=== PATIENT | male | born 1995 | race Caucasian/White ===

== ENCOUNTER 2025-09-25 13:25 | Emergency (ER) | payer SELFPAY ==
[2025-09-25] VITALS (8 sets, daily range): BP systolic 95–182; BP diastolic 57–138; PULSE 99–117; RESP 15–24; TEMP 36.9; O2SAT 96–98
--- NOTE | 2025-09-25 13:46 | CTR_ITS ---
PROCEDURE INFORMATION: Exam: CT Head Without Contrast Exam date and time: 09/25/2025 2:52 PM Age: 30 years old Clinical indication: Pain; Headache; Additional info: ANTONIO TECHNIQUE: Imaging protocol: Computed tomography of the head without contrast. Radiation optimization: All CT scans at this facility use at least one of these dose optimization techniques: automated exposure control; mA and/or kV adjustment per patient size (includes targeted exams where dose is matched to clinical indication); or iterative reconstruction. COMPARISON: No relevant prior studies available. RADIATION DOSE METRICS: Total DLP (mGy-cm): 1162.1 FINDINGS: Brain: Multiple lobar hemorrhages in the right frontoparietal and temporal lobes. The largest hematoma in the perirolandic region measures approximately 4.2 x 2.9 x 2.1 cm. Right temporal lobe hematoma measures 1.9 x 1.7 x 2.6 cm. Smaller hemorrhages including a more hypodense hemorrhage in the right frontal lobe (series 7, image 37) and hematoma in the right occipital lobe (series 7, image 22). There is extensive vasogenic edema and proximally 1.4 cm of leftward midline shift with subfalcine herniation. Cerebral ventricles: The left lateral ventricle appears slightly enlarged, possibly reflecting obstructive hydrocephalus. Paranasal sinuses: Moderate left maxillary sinus mucosal thickening. Mastoid air cells: Visualized mastoid air cells are well aerated. Bones: Unremarkable. No acute fracture. Soft tissues: Unremarkable. CT/CT head wo con* [id number] IMPRESSION: 1. Multiple right-sided lobar hemorrhages with extensive vasogenic edema and 1.4 cm of leftward midline shift and subfalcine herniation. 2. Asymmetric enlargement of the left lateral ventricle, possibly trapped ventricle and obstructive hydrocephalus. 3. Recommend emergent neurosurgical consult. 4. Possible etiologies for multiple parenchymal hematomas include extreme hypertension, possibly substance induced in a patient of this age. Given proximity to lazo-white junction, can not exclude hemorrhagic metastases. Recommend MRI with contrast when patient is clinically stable, if no contraindication. COMMENTS: THIS REPORT CONTAINS FINDINGS THAT MAY BE CRITICAL TO PATIENT CARE. The exam findings were verbally communicated by me to SRINI BEAVERS via telephone conference at 3:09 PM SUPPLIER ENGINEER on 09/25/2025. The findings were acknowledged and understood.
--- NOTE | 2025-09-25 13:46 | ECG_ITS ---
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 Measurements Intervals [place] Rate: 110 P: 52 FL: 151 QRS: 35 QRSD: 101 T: -16 QT: 378 QTc: 513 Interpretive Statements SINUS TACHYCARDIA POSSIBLE LEFT ATRIAL ENLARGEMENT [-0.1mV P-WAVE IN V1/V2] SEPTAL MYOCARDIAL INFARCTION , PROBABLY OLD [40+ ms Q WAVE IN V1/V2] No previous ECG available for comparison Electronically Signed On 09-27-2025 17:50:19 PSYCHIATRIST by Reagan Pollard M.D. [email or web address]
--- NOTE | 2025-09-25 13:48 | ED_ITS ---
HPI - Headache 2 General: Chief Complaint: Headache Stated Complaint: stroke like symptoms Time Seen by Provider: 09/25/25 13:37 Source: patient Mode of arrival: ambulatory Limitations: no limitations History of Present Illness: 30-year-old male has a history of hypert ension along with alcohol abuse states he has had a headache over the last 2 days. 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 States he has family history of migraines. States he had some blurred vision originally but that has improved he states he had some left arm weakness over the last 2 days as well. Since mild dizziness he had vomiting he denies any fevers. Related Data Previous Rx's ?Medication ?Instructions ?Recorded clonidine HCl 0.1 mg tablet 0.1 mg PO TID PRN hyperten sive 03/23/25 emergency #90 tabs Allergies Allergy/AdvReac Type Severity Reaction Status Date / Time No Known Allergies Allergy Verified 09/25/25 13:35 Review of Systems 2 Neuro: Reports: headache(s) PFS ED 2 PFSH: Medical History (Updated 09/25/25 @ 15:18 by Srini Beavers MD) Depression Hypertension Social History Smoking and tobacco/nicotine status: never used tobacco/nicotine Physical Exam 2 Const: COMMON NORMALS: no acute distress, patient oriented x3 and healthy appearing HENMT: COMMON NORMALS: normocephalic and atraumatic HEAD & SCALP: n ormocephalic and atraumatic Eye: COMMON NORMALS: Equal, round and reactive pupils present and EOMs intact bilaterally PUPIL: Yes Equal, round and reactive pupils present Neck/C-Spine: COMMON NORMALS: full ROM and supple Chest: COMMONS NORMALS: normal inspection of the chest Resp: COMMON NORMALS: normal respiratory effort, No retractions, No use of accessory muscles and clear to auscultation bilaterally AUSCULTATION: clear to auscultation bilaterally Cardio: COMMON NORMALS: regular rate, regular rhythm and No murmurs present (Cardio) RATE: regular rate RHYTHM: regular rhythm GI: COMMON NORMALS: Normal to inspection, nondistended, normoactive bowel sounds present, Soft to palpation, non-tender and no masses PALPATION: Yes Soft to palpation Extremity: COMMON NORMALS: normal to inspection and full ROM Neuro: COMMON NORMALS: patient oriented x3 and moves all extremities Psych: COMMON NORMALS: mental status grossly normal, Normal thought process present and cooperative THOUGHT PROCESS: Normal thought process present Skin: COMMON NORMALS: no rashes or lesions noted and no wounds GENERAL SKIN EXAM: no rashes or lesions noted Procedures Intubation Time out performed: Yes sedative: Etomidate Mg Given: 20 paralytic: Succinylcholine Mg Given: 150 Laryngoscope: Aric ET Tube Size: 8 ET Tube Uncuffed: No Tube Secured Depth (cm): 25 Tube Secured Location: teeth Tube Placement Confirmation: visualized tube passing through cords, equal breath sounds bilaterally, no breath sounds over epigastrium and confirmation by capnometry Patient Tolerated Procedure: well Intubation Complications: none Course 2 Vital Signs: Vital signs: Vital Signs Temperature 98.4 F 09/25/25 13:28 Pulse Rate 113 H 09/25/25 13:28 Respiratory Rate 16 09/25/25 13:28 Blood Pressure 182/138 09/25/25 13:28 Pulse Oximetry 96 09/25/25 13:28 Oxygen Delivery Me thod Room Air 09/25/25 13:28 MDM - Headache Medical Decision Making Patient presents with headaches been going on for 2 days along with some mild left-sided weakness. Differential includes tension headache, migraine, subarachnoid hemorrhage, intracerebral hemorrhage. Did perform a head CT that does show multiple and cerebral hemorrhages with a midline shift. Patient has became more altered here and did have to intubate him. Likely from hypertension did give patient hydralazine along with multiple dose of labetalol have him on a Cardene drip along with propofol drip. I did speak to [facility] and they excepted to the ER for high-level care of neurosurgery. critical care time 40 minutes The high probability of a clinically significant, sudden or life threatening deterioration of the patient's neuro system(s) required my full and direct attention, intervention and personal management. The critical care time is as shown. This time is in addition to time spent performing any reported procedures but includes the following: [x] Data and vital sign review and interpretation [x] Patient assessment, examination and intervention [x] Documentation [x] Medication orders and management Medical Records I reviewed the patient's medical records. Lab Data I reviewed the patient's lab results. 09/25/25 13:55 09/25/25 13:[address] 09/25/25 13:46 IMPRESSION: 1. Multiple right-sided lobar hemorrhages with extensive vasogenic edema and 1.4 cm of leftward midline shift and subfalcine herniation. 2. Asymmetric enlargement of the left lateral ventricle, possibly trapped ventricle and obstructive hydrocephalus. 3. Recommend emergent neurosurgical consult. 4. Possible etiologies for multiple parenchymal hematomas include extreme hypertension, possibly substance induced in a patient of this age. Given proximity to lazo-white junction, can not exclude hemorrhagic metastases. Recommend MRI with contrast when patient is clinically stable, if no contraindication. COMMENTS: THIS REPORT CONTAINS FINDINGS THAT MAY BE CRITICAL TO PATIENT CARE. The exam findings were verbally communicated by me to SRINI BEAVERS via telephone conference at 3:09 PM COPPER ROLLER HANDLER PRINTING on 09/25/2025. The findings were acknowledged and understood. Laboratory Results WBC 12.35 10^3/uL (3.29-11.43) H 09/25/25 13:55 RBC 5.31 10^6/uL (3.85-5.65) 09/25/25 13:55 Hgb 18.20 g/dL (11.27-16.99) H 09/25/25 13:55 Hct 50.0 % (37-53) 09/25/25 13:55 MCV 94.2 fl (82-101) 09/25/25 13:55 MCH 34.3 pg (27-33) H 09/25/25 13:55 MCHC 36.4 g/dL (30-55) 09/25/25 13:55 RDW 16.4 % (12.1-15.1) H 09/25/25 13:55 Plt Count 264 10^3/cmm (157-399) 09/25/25 13:55 MPV 9.8 fL (7.4-10.4) 09/25/25 13:55 Neut % (Auto) 78.2 % 09/25/25 13:55 Lymph % (Auto) 9.6 % 09/25/25 13:55 [place] % (Auto) 11.2 % 09/25/25 13:55 Eos % (Auto) 0.0 % 09/25/25 13:55 Baso % (Auto) 0.2 % 09/25/25 13:55 Neut # (Auto) 9.67 10^3/uL (1.8-7.7) H 09/25/25 13:55 Lymph # (Auto) 1.2 10^3/uL (0.8-4.8) 09/25/25 13:55 [place] # (Auto) 1.4 10^3/uL (0.2-0.9) H 09/25/25 13:55 Eos # (Auto) 0.0 10^3/uL (0.0-0.8) 09/25/25 13:55 Baso # (Auto) 0.0 10^3/uL (0.0-0.1) 09/25/25 13:55 Nucleated RBC % (auto) 0 % 09/25/25 13:55 Nucleated RBCs # 0.0 /100WBC 09/25/25 13:55 PT 14.80 SECONDS (12.1-14.9) 09/25/25 13:55 INR 1.08 (0.8-1.2) 09/25/25 13:55 Sodium 132 mmol/L (136-145) L 09/25/25 13:55 Potassium 2.8 mmol/L (3.5-5.1) L* 09/25/25 13:55 Chloride 89 mmol/L (98-107) L 09/25/25 13:55 Carbon Dioxide 27 mmol/L (22-29) 09/25/25 13:55 Anion Gap 18.8 (5-19) 09/25/25 13:55 BUN 13 mg/dL (6-20) 09/25/25 13:55 Creatinine 0.9 mg/dL (0.7-1.2) 09/25/25 13:55 GFR Calculation 98.4 mL/min (90-130) 09/25/25 13:55 Glucose 155 mg/dL (65-115) H 09/25/25 13:55 Calculated Osmolality 277 mOsm/kg (285-295) L 09/25/25 13:55 Calcium 8.7 mg/dL (8.5-10.5) 09/25/25 13:55 Magnesium 2.1 mg/dL (1.7-2.3) 09/25/25 13:55 Total Bilirubin 1.6 mg/dL (0.15-1.2) H 09/25/25 13:55 AST 32 U/L (0-40) 09/25/25 13:55 ALT 28 U/L (0-41) 09/25/25 13:55 Alkaline Phosphatase 52 U/L (40-130) 09/25/25 13:55 Total Protein 7.3 g/dL (6.6-8.7) 09/25/25 13:55 Albumin 3.7 g/dL (3.5-5.2) 09/25/25 13:55 Globulin 3.6 g/dL (1.3-4.6) 09/25/25 13:55 Ethyl Alcohol < 10 mg/dL (0-10) 09/25/25 13:55 All radiology interpretation(s) finalized by discharge EKG Data EKG 1: I personally reviewed and interpreted this EKG as follows: EKG interpretation date: 09/25/25 EKG interpretation time: 13:58 Interpretation: sinus tach hr [address] elevation qrs 101 qtc 443 Critical Care Time 2 Critical Care Time: Critical Care Time: Yes Total Critical Care Time: 40 Attestation: The high probability of a clinically significant, sudden or life threatening deterioration of the patient's neuro system(s) required my full and direct attention, intervention and personal management. The critical care time is as shown. This time is in addition to time spent performing any reported procedures but includes the following: [x] Data and vital sign review and interpretation [x] Patient assessment, examination and intervention [x] Documentation [x] Medication orders and management Discharge Plan Discharge Patient Disposition: Xfer Short-Term Hosp Clinical Impression: Intracranial hemorrhage Condition: Stable Referrals: Vasyl Rich MD [Primary Care Provider, [facility]] Print Language: Tamazight Coding Level of Care Code ED Icd 9 Coder for Chg Fwd NIH stroke score NIHSS Level Of Consciousness - 1a: 0 Level Of Consciousness Questions - 1b: Both Correct Level Of Consciousness Commands - 1c: Both Correct Best Gaze - 2: Normal Visual Hoffmann - 3: No Visual Loss Facial Palsy - 4: Normal Motor Arm Right - 5: No Drift Motor Arm Left - 5: Drift Motor Leg Right - 6: No Drift Motor Leg Left - 6: No Drift Limb Ataxia - 7: Absent Sensory - 8: Normal Best Language - 9: No Aphasia Dysarthia - 10: Normal Extinction And Inattention - 11: 0 Score Total Score: 1
[2025-09-25 14:02] LABS: Hematocrit 50.0 % (37-53); Hemoglobin 18.20 g/dL (11.27-16.99); Mean Corpuscular HGB Conc 36.4 g/dL (30-55); Mean Corpuscular Hemoglobin 34.3 pg (27-33); Mean Corpuscular Volume 94.2 fl (82-101); Nucleated Red Blood Cells % 0 %; Platelet Count 264 10^3/cmm (157-399); Red Blood Count 5.31 10^6/uL (3.85-5.65); White Blood Count 12.35 10^3/uL (3.29-11.43)
[2025-09-25] MEDS: metoclopramide 5 mg/mL SDV 2 mL 10 MG IVP (14:03)
[2025-09-25] MEDS: diphenhydrAMINE 50 mg/mL SDV 1mL IVP (14:04)
[2025-09-25] MEDS: hyDRALAzine 20 mg/mL INJ 1 mL 10 MG IVP (14:04)
--- OUTSIDE RECORDS SUMMARY | 2025-09-25 14:11 | XMS_ITS | Encounter Summary ---
Author Organization [employer] [facility] Address [address] [place] [address] Care Team Providers Care Map Colorer Name Role Phone Unavailable Primary Care Provider Unavailabl e Encounter Details Date Type Department Care Team (Late st Contact Info) Description 02/01/2018 Lab Requisition [facility] General Laboratory Services [address] [place] [address] 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 Gender Identity Not on file Sexual Orientation Not on file documented as of this encounter Plan of Treatment Not on file documented as of this encounter Procedures Procedure Name Priority Date/Time Associated Diagnosis Comments HEMOGLOBIN A1C Routine 02/01/2018 6:17 AM CDT LIPID PANEL Routine 02/01/2018 6:17 AM CDT COMPREHENSIVE METABOLIC PANEL Routine 02/01/2018 6:17 AM CDT documented in this encounter Results * HEMOGLOBIN A1C (02/01/2018 6:17 AM CDT) HEMOGLOBIN A1C 4.9 4.0 - 6.0 % 02/02/2018 10:46 AM CDT [facility] [employer] [facility] EST. AVG GLUCOSE, A1C 94 mg/dL 02/02/2018 10:46 AM CDT [facility] Blood Collection / Unknown 02/01/2018 6:17 AM CDT 02/01/2018 2:12 PM CDT Narrative [facility] - 02/02/2018 10:46 AM CDT Test performed on [employer] instrumentation using HPLC methodology Greg Baldwin DO CHEMISTRY ORDERABLES Final R esult [facility] CLIA# [id number] [address] [place] [address] * (ABNORMAL) LIPID PANEL (02/01/2018 6:17 AM CDT) CHOLESTEROL 180 <200 mg/dL 02/01/2018 6:36 PM CDT [facility] TRIGLYCERIDE 63 <150 mg/dL 02/01/2018 6:36 PM CDT [facility] HDL 55 40 - 59 mg/dL 02/01/2018 6:36 PM CDT [facility] LDL CALCULATED 112(H) <100 mg/dL 02/01/2018 6:36 PM CDT [facility] NON-HDL CHOLESTEROL 125 <130 mg/dL 02/01/2018 6:36 PM T [facility] Blood Collection / Unknown 02/01/2018 6:17 AM CDT 02/01/2018 2:12 PM CDT Narrative [facility] - 02/01/2018 6:36 PM CDT TOTAL CHOLESTEROL mg/dL Desirable <200 Borderline high 200-239 High >=240 TRIGLYCERIDES mg/dL Normal <150 Borderline high 150-199 High 200-499 Very high >=500 HDL CHOLESTEROL mg/dL Low <40 Normal 40-59 Desirable >=60 NON HDL CHOLESTEROL mg/dL Optimal <130 Near Optimal 130-159 Borderline High 160-189 Very High >=190 Calculated LDL mg/dL Optimal <100 Near Optimal 100-129 Borderline High 130-159 High 160-189 Very High >=190 ATPIII Guidelines Reference Ranges for Lipid Panels (NCEP/AMA) us Greg Baldwin DO CHEMISTRY ORDERABLES Final R esult [facility] CLIA# [id number] [address] [place] [address] * COMPREHENSIVE METABOLIC PANEL (02/01/2018 6:17 AM CDT) SODIUM 141 136 - 145 mmol/L 02/01/2018 6:36 PM T [facility] POTASSIUM 4.4 3.5 - 5.1 mmol/L 02/01/2018 6:36 PM [facility] CHLORIDE 100 98 - 107 mmol/L 02/01/2018 6:36 PM [facility] CO2 27 22 - 29 mmol/L 02/01/2018 6:36 PM [facility] CALCIUM 9.7 8.6 - 10.0 mg/dL 02/01/2018 6:36 PM [facility] BUN 12 6 - 20 mg/dL 02/01/2018 6:36 PM [facility] CREATININE 1.11 0.67 - 1.17 mg/dL 02/01/2018 6:36 PM [facility] GLUCOSE 102 74 - 106 mg/dL 02/01/2018 6:36 PM [facility] TOTAL PROTEIN 7.8 6.4 - 8.3 g/dL 02/01/2018 6:36 PM [facility] ALBUMIN 4.7 3.5 - 5.2 g/dL 02/01/2018 6:36 PM [facility] BILIRUBIN TOTAL 0.6 0.2 - 1.0 mg/dL 02/01/2018 6:36 PM [facility] ALKALINE PHOSPHATASE 53 40 - 129 U/L 02/01/2018 6:36 PM T [facility] AST 43 10 - 50 U/L 02/01/2018 6:36 PM [facility] ALT 46 <=50 U/L 02/01/2018 6:36 PM [facility] GFR >60 >=60 mL/min/1.7 3 sq meter 02/01/2018 6:36 PM CDT [facility] Comment: eGFR has not been validated for use in the elderly (> 70 years of age), women, patients with serious co-morbid conditions, or persons with extremes of body size or muscle mass and should also be interpreted with caution in patients with acute kidney failure, dialysis dependent patients, patients reporting exceptional dietary intake (e.g. vegetarian diet, high protein diets, creatine supplementation), and patients with severe liver disease. Based on National Kidney Disease Education Program If patient is , please refer to the GFR result. GFR, >60 >=60 mL/min/1.7 3 sq meter 02/01/2018 6:36 PM CDT [facility] ANION GAP 14 4 - 30 mmol/L 02/01/2018 6:36 PM CDT [facility] Blood Collection / Unknown 02/01/2018 6:17 AM CDT 02/01/2018 2:12 PM CDT us Greg Baldwin DO CHEMISTRY ORDERABLES Final R esult [facility] CLIA# [id number] [address] [place] [address] documented in this encounter Visit Diagnoses Not on filedocumented in this encounter
--- OUTSIDE RECORDS SUMMARY | 2025-09-25 14:11 | XMS_ITS | Encounter Summary ---
Author Organization [employer] [facility] Address [address] [place] [address] Care Team Providers Care Cream Tester Name Role Phone Unavailable Primary Care Provider Unavailabl e Encounter Details Date Type Department Care Team (Late st Contact Info) Description 02/07/2019 Lab Requisition [facility] General Laboratory Services [address] [place] [address] 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 [employer] [facility] EST. AVG GLUCOSE, A1C 103 mg/dL 02/08/2019 6:07 AM CDT [facility] Blood Collection / Unknown 02/07/2019 6:06 AM CDT 02/07/2019 12:08 PM CDT Jonathan [facility] - 02/08/2019 6:07 AM CDT HGB A1C INTERPRETATION NORMAL: <5.7% PRE-DIABETES: 5.7 - 6.4% DIABETES: 6.5% OR GREATER Greg Baldwin DO CHEMISTRY ORDERABLES Final R esult [facility] CLIA# [id number] [address] [place] [address] * (ABNORMAL) LIPID PANEL (02/07/2019 6:06 AM CDT) CHOLESTEROL 209(H) <200 mg/dL 02/07/2019 2:49 PM CDT [facility] TRIGLYCERIDE 78 <150 mg/dL 02/07/2019 2:49 PM CDT [facility] HDL 37(L) 40 - 59 mg/dL 02/07/2019 2:49 PM CDT [facility] LDL CALCULATED 156(H) <100 mg/dL 02/07/2019 2:49 PM CDT [facility] NON-HDL CHOLESTEROL 172(H) <130 mg/dL 02/07/2019 2:49 PM CDT [facility] Blood Collection / Unknown 02/07/2019 6:06 AM CDT 02/07/2019 12:08 PM CDT Jonathan [facility] - 02/07/2019 2:49 PM CDT TOTAL CHOLESTEROL mg/dL Desirable <200 [...] DO CHEMISTRY ORDERABLES Final R esult [facility] CLIA# [id number] [facility] [place] [address] * (ABNORMAL) COMPREHENSIVE METABOLIC PANEL (02/07/2019 6:06 AM CDT) SODIUM 140 136 - 145 mmol/L 02/07/2019 2:49 PM CDT [facility] POTASSIUM 3.8 3.5 - 5.1 mmol/L 02/07/2019 2:49 PM CDT [facility] CHLORIDE 101 98 - 107 mmol/L 02/07/2019 2:49 PM CDT [facility] CO2 26 22 - 29 mmol/L 02/07/2019 2:49 PM CDT [facility] CALCIUM 9.5 8.6 - 10.0 mg/dL 02/07/2019 2:49 PM CDT [facility] BUN 6 6 - 20 mg/dL 02/07/2019 2:49 PM CDT [facility] CREATININE 1.21(H) 0.67 - 1.17 mg/dL 02/07/2019 2:49 PM T [facility] GLUCOSE 84 74 - 99 mg/dL 02/07/2019 2:49 PM CDT [facility] TOTAL PROTEIN 7.9 6.4 - 8.3 g/dL 02/07/2019 2:49 PM T [facility] ALBUMIN 4.6 3.5 - 5.2 g/dL 02/07/2019 2:49 PM CDT [facility] BILIRUBIN TOTAL 0.6 0.2 - 1.0 mg/dL 02/07/2019 2:49 PM CDT [facility] ALKALINE PHOSPHATASE 43 40 - 129 U/L 02/07/2019 2:49 PM T [facility] AST 63(H) 10 - 50 U/L 02/07/2019 2:49 PM CDT [facility] ALT 50 <=50 U/L 02/07/2019 2:49 PM T [facility] GFR >60 >=60 mL/min/1. 73 sq meter 02/07/2019 2:49 PM T [facility] Comment: eGFR has not been validated for [...] to the GFR result. GFR, >60 >=60 mL/min/1. 73 sq meter 02/07/2019 2:49 PM CDT [facility] ANION GAP 13 9 - 20 mmol/L 02/07/2019 2:49 PM T [facility] Blood Collection / Unknown 02/07/2019 6:06 AM CDT 02/07/2019 12:08 PM CDT us Greg Baldwin DO CHEMISTRY ORDERABLES Final R esult [facility] CLIA# [id number] [address] [place] [address] documented in this encounter Visit Diagnoses Not on filedocumented in this encounter
--- OUTSIDE RECORDS SUMMARY | 2025-09-25 14:11 | XMS_ITS | Clinical Summary ---
Author Organization [facility] Address [address] [place] [address] Care Team Providers Care Log Haul Operator Name Role Phone Unavailable Primary Care Provider Unavailabl e Social History Tobacco Use Types Packs/Day Years Used Date Smoking Tobacco: Never Assessed Sex and Gender Information Value Date Recorded Sex Assigned at Not on file Legal Sex Male 7:21 AM CDT Gender Identity Not on file Sexual Orientation Not on file Plan of Treatment Health Maintenance Due Date Last Done Comments HIV Screening 1994 Hepatitis C Screening ages 1 8 to 79 once 1994 MMR VACCINES (1 of 1 - Stand sonia series) 1995 YEARLY WELLNESS EXAM 1997 Varicella Vaccine (2 of 2 - 2-dose childhood series) 1998 05/08/1996 DEPRESSION SCREENING 2006 HPV VACCINES (1 - Male 3-dos e series) 2009 ADULT TETANUS 2013 HEPATITIS B VACCINES (1 of 3 - 19+ 3-dose series) 2013 Influenza Vaccine 06/01/2025 COVID-19 Immunization (1 - 2 024-25 season) 2025 Zoster Vaccine (Recombinant Vaccine) (1 of 2) 2044 HEPATITIS A VACCINES Aged Out No long er eligible based on patient's age to complete this topic HIB VACCINES Aged Out No longer eligi ble based on patient's age to complete this topic IPV VACCINES Aged Out No longer eligi ble based on patient's age to complete this topic MENINGOCOCCAL VACCINE Aged Out No samantha lincoln eligible based on patient's age to complete this topic Meningococcal B Vaccine Aged Out No l onger eligible based on patient's age to complete this topic Pneumococcal Vaccine: Peds t o 50 & At-Risk Patients Aged Out No longer eligible b ased on patient's age to complete this topic ROTAVIRUS VACCINES Aged Out No longer eligible based on patient's age to complete this topic
--- OUTSIDE RECORDS SUMMARY | 2025-09-25 14:11 | XMS_ITS | Clinical Summary ---
Author Organization [facility] Address [address] [facility] Attn: [place] [address] Care Team Providers Care Agriculture Intern Name Role Phone Unavailable Primary Care Provider Unavailabl e Immunizations Immunization Administration Dates Next Due (M-M-R II/PRIORIX)(12 MO UP) MEASLES, MUMPS AND RUBELLA VIRUS VACCINE, 0.5 ML IM/SUBCUT 05/22/1998,07/22/1995 (VARIVAX)(12 MOS UP)VARICELL A VIRUS VACCINE (PF) 0.5 ML, SUB CUT 05/08/1996 Dt Dtp Dtap Vaccine 05/22/1998, 5,1994,1993,1994 HIB, Unspecified Formulation 07/22/1995, 1994,1994,1993 Hepatitis B Vaccine 1994,1994,1993 IPV/OPV 05/22/1998, 5,1994,1993 Social History Tobacco Use Types Packs/Day Years Used Date Smoking Tobacco: Never Assessed Sex and Gender Information Value Date Recorded Sex Assigned at Not on file 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
--- OUTSIDE RECORDS SUMMARY | 2025-09-25 14:11 | XMS_ITS | Encounter Summary ---
Author Organization [facility] Address [address] [place] [address] Care Team Providers Care Jig Maker Name Role Phone Unavailable Primary Care Provider Unavailabl e Encounter Details Date Type Department Care Team (Late st Contact Info) Description 02/06/2016 Lab Requisition [facility] General Laboratory Services [address] 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 Gender Identity Not on file Sexual Orientation Not on file documented as of this encounter Plan of Treatment Not on file documented as of this encounter Procedures Procedure Name Priority Date/Time Associated Diagnosis Comments GLUCOSE FASTING Routine 02/06/2016 9:56 AM CDT LIPID PANEL Routine 02/06/2016 9:56 AM CDT documented in this encounter Results * GLUCOSE FASTING (02/06/2016 9:56 AM CDT) GLUCOSE-FASTIN G 92 70 - 99 mg/dL 02/06/2016 3:02 PM CDT [facility] [employer] [facility] Blood Collection / Unknown 02/06/2016 9:56 AM CDT 02/06/2016 1:27 PM CDT Narrative [facility] [employer] [facility] - 02/06/2016 3:02 PM CDT <100 mg/dl: Normal Fasting Glucose 100-125 mg/dl: Impaired Fasting Glucose >/=126 mg/dl: Provisional diagnosis of Diabetes The diagnosis must be confirmed. Bud Phillips MD CHEMISTRY ORDERABLES Final Res ult Performing Organization Address City/[facility]/ZIP Co de Phone Number [facility] CLIA# [id number] [address] [place] [address] * (ABNORMAL) LIPID PANEL (02/06/2016 9:56 AM CDT) [facility] CHOLESTEROL 171 <200 mg/dL 02/06/2016 3:02 PM CDT [facility] TRIGLYCERIDE 51 <150 mg/dL 02/06/2016 3:02 PM CDT [facility] HDL 81(H) 40 - 59 mg/dL 02/06/2016 3:02 PM CDT [facility] LDL CALCULATED 80 <100 mg/dL 02/06/2016 3:02 PM CDT [facility] NON-HDL CHOLESTEROL 90 <130 mg/dL 02/06/2016 3:02 PM T [facility] Blood Collection / Unknown 02/06/2016 9:56 AM CDT 02/06/2016 1:27 PM CDT Narrative [facility] - 02/06/2016 3:02 PM CDT TOTAL CHOLESTEROL mg/dL Desirable <200 Borderline high 200-239 High >=240 TRIGLYCERIDES mg/dL Normal <150 Borderline high 150-199 High 200-499 Very high >=500 HDL CHOLESTEROL mg/dL Low <40 Normal 40-59 Desirable >=60 LDL CHOLESTEROL mg/dL Optimal <100 Low risk 100-129 Borderline high 130-159 High 160-189 Very high >=190 NON HDL CHOLESTEROL mg/dL Optimal <130 Near Optimal 130-159 Borderline High 160-189 High 190-219 Very high >=220 Based on AHA/NCEP Guidelines Bud Phillips MD CHEMISTRY ORDERABLES Final Res ult Performing Organization Address City/[facility]/ZIP Co de Phone Number [facility] CLIA# [id number] [address] [place] [address] documented in this encounter Visit Diagnoses Not on filedocumented in this encounter
--- OUTSIDE RECORDS SUMMARY | 2025-09-25 14:11 | XMS_ITS | Encounter Summary ---
Author Organization [employer] [facility] Address [address] [place] [address] Care Team Providers Care Script Girl Name Role Phone Unavailable Primary Care Provider Unavailabl e Encounter Details Date Type Department Care Team (Latest Contact Info) Description 10/14/1999 Outpatient Historical [facility] Ruiz Luz MD [address] [place] [address] Chronic rhinitis (Primary Dx) Social History Tobacco Use Types Packs/Day Years Used Date Smoking Tobacco: Never Assessed Sex and Gender Information Value Date Recorded Sex Assigned at Not on file 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
--- OUTSIDE RECORDS SUMMARY | 2025-09-25 14:11 | XMS_ITS | Clinical Summary ---
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
[2025-09-25 14:20] LABS: Alanine Aminotransferase 28 U/L (0-41); Albumin Level 3.7 g/dL (3.5-5.2); Alkaline Phosphatase 52 U/L (40-130); Anion Gap 18.8 (5-19); Aspartate Amino Transferase 32 U/L (0-40); Blood Urea Nitrogen 13 mg/dL (6-20); Calcium 8.7 mg/dL (8.5-10.5); Carbon Dioxide 27 mmol/L (22-29); Chloride 89 mmol/L (98-107); Globulin 3.6 g/dL (1.3-4.6); Glucose 155 mg/dL (65-115); INR 1.08 (0.8-1.2); Osmolality Calculated 277 mOsm/kg (285-295); Prothrombin Time 14.80 SECONDS (12.1-14.9); Sodium 132 mmol/L (136-145); Total Protein 7.3 g/dL (6.6-8.7)
[2025-09-25 14:31] LABS: Alcohol Level < 10 mg/dL (0-10); Potassium 2.8 mmol/L (3.5-5.1)
[2025-09-25] MEDS: labetalol 5 mg/mL SDV 20mL 20 MG IVP ×2 (15:03→15:35)
[2025-09-25 15:05] LABS: Magnesium 2.1 mg/dL (1.7-2.3)
[2025-09-25] MEDS: etomidate 2 mg/mL INJ SDV 10 mL 20 MG IVP (15:12)
[2025-09-25] MEDS: succinylcholine 20 mg/mL SDV 10mL 150 MG IVP (15:13)
--- NOTE | 2025-09-25 15:15 | XRR_ITS ---
PROCEDURE INFORMATION: Exam: XR Chest Exam date and time: 09/25/2025 3:16 PM Age: 30 years old Clinical indication: Device placement; Ett placement (vent status); Additional info: Post intubation TECHNIQUE: Imaging protocol: Radiologic exam of the chest. Views: 1 view. COMPARISON: No relevant prior studies available. FINDINGS: Tubes, catheters and devices: Endotracheal tube terminates approximately 7 mm from the steve. Enteric tube tip is in the stomach. Lungs: Low lung volumes. No obvious focal airspace opacity. Pleural spaces: No pneumothorax or pleural effusion. Heart/Mediastinum: Heart size can not be accurately assessed in this projection. Diaphragm: Right hemidiaphragm elevation. Bones/joints: Unremarkable. XR/XR chest 1V portable [id number] IMPRESSION: Endotracheal tube terminates approximately 7 mm from the steve. Recommend slightly retracting. Critical finding reported. Addendum will be added once provider is contacted.
[2025-09-25] MEDS: propofol 1,000 MG/100 ML INJ 3.57 MG IV (15:17)
[2025-09-25] MEDS: fentaNYL 1,000 MCG/100 ML BAG 5 MCG IV (15:35)
--- NOTE | 2025-09-25 15:45 | PC.NURSE ---
report called to CARMELINA Santana @[facility] in [place], [place]. report # . ER to ER.
[2025-09-25 16:07] LABS: PCP Screen Urine Negative (Negative)
[2025-09-25] MEDS: propofol 10 mg/mL SDV 20 mL 200 MG IVP (16:41)
--- NOTE | 2025-09-25 16:44 | PC.NURSE ---
INTUBATION NOTE 1512 SUCCINYLCHOLINE GIVEN 1514 ETOMIDATE GIVEN [address]
--- NOTE | 2025-09-25 16:48 | PC.NURSE ---
FOUR SEPARATE VERBAL ORDERS GIVEN FROM DR. BEAVERS FOR IVP PROPOFOL. THREE SEPARATE IVP 60MG PROPOFOL. ADDITIONAL VERBAL ORDER TO GIVE REMAINDER OF PROPOFOL IN BOTTLE WHICH EQUALED 20MG. MAR WILL NOT REFLECT ACTUAL TIMES MEDICATION GIVEN DUE TO ACUITY OF PT DURING VERBAL ORDERS.
--- NOTE | 2025-09-25 17:00 | PC.NURSE ---
[facility] FLIGHT NURSE OFFERED ADDITIONAL BOTTLE OF PROPOFOL AND BAG OF NICARDIPINE FOR SEDATION AND HTN. [facility] NURSE DECLINED BOTH. PT PROPOFOL STOPPED BY [facility] BEFORE FLIGHT.
== END 2025-09-25 17:06 | disposition short-term general hospital (02) ==
PROVIDERS: Emergency Provider Emergency Medicine; Family Provider Family Medicine; PCP Family Medicine
DX: R53.1 Weakness (principal); S06.300A Unspecified focal traumatic brain injury without loss of consciousness, initial encounter; I10 Essential (primary) hypertension; X58.XXXA Exposure to other specified factors, initial encounter
CPT/HCPCS: 31500; 36415; 70450; 71045; 80053; 80306; 80307; 83735; 85025; 85610; 93005; 94799; 96374; 96375; 96376; 99291; 99292; J0330; J0360; J1200; J2704; J2765; J3010; J3490; J9999